=== PATIENT | female | born 1990 | race Caucasian/White ===

== ENCOUNTER 2017-10-13 22:21 | Emergency (ER) | payer OTHER ==
[~2017-10-13] VITALS: Ht 160 cm; Wt 68.0 kg
[2017-10-13 22:34] VITALS: BP 129/90
--- NOTE | 2017-10-13 22:39 | NUR ---
TO LOBBY ,A/W BED, AMB ,STABLE, ERMD NOTED
--- NOTE | 2017-10-14 00:20 | NUR ---
PATIENT AMBULATED TO ER BED 2
--- NOTE | 2017-10-14 00:56 | NUR ---
26Y/F PT. PRESENTS TO ED WITH C/O LOWER ABDOMINAL PAIN X 1 WK. PT. STATES HAVING PERIOD NOW, PAIN RADIATES TO BACK WITH NAUSEA. NO MED HX. AAO X4, AMBULATORY WITH STEADY GAIT. RESPIRATIONS ROOM AIR, EVEN AND UNLABORED. ABDOMEN SOFT, NONTENDER, ACTIVE BS X4. C/O PAIN 9/. VSS, ER MADE AWARE OF PT.STATUS.
[2017-10-14] MEDS ORDERED: DICYCLOMINE 20 MG/2 ML VIAL IM ONE (01:30)
[2017-10-14 01:38] LABS: BASOPHILS # (AUTO) 0.2 K/uL (0.00-0.22); BASOPHILS % (AUTO) 1.9 % (0.0-2.0); EOSINOPHILS # (AUTO) 0.1 K/uL (0-0.4); HEMATOCRIT 35.9 % (36-48); HEMOGLOBIN 11.5 g/dL (12.0-16.0); LYMPHOCYTES % (AUTO) 16.5 % (20.5-51.1); MEAN CORPUSCULAR HEMOGLOBIN 26 pg (27-31); MEAN CORPUSCULAR HGB CONC 32 g/dL (33-37); MEAN CORPUSCULAR VOLUME 80.6 fL (80-94); MONOCYTES # (AUTO) 0.6 K/uL (0.8-1.0); MONOCYTES % (AUTO) 4.7 % (1.7-9.3); NEUTROPHILS % (AUTO) 75.9 % (42.2-75.2); PLATELET COUNT (AUTO) 113 K/uL (140-450); RED BLOOD CELL COUNT(AUTO) 4.45 MIL/uL (4.20-5.40); RED CELL DISTRIBUTION WIDTH 14.6 % (11.6-13.7); WHITE BLOOD COUNT (AUTO) 11.9 K/uL (4.8-10.8)
[2017-10-14 01:51] LABS: ANION GAP 8.4 (8-16); CARBON DIOXIDE 27.1 mmol/L (21-32); CREATININE 0.6 mg/dL (0.6-1.3); POTASSIUM 3.5 mmol/L (3.5-5.1)
[2017-10-14 01:59] LABS: ALBUMIN 3.9 g/dL (3.4-5.0); TOTAL BILIRUBIN 0.7 mg/dL (0.0-1.0)
[2017-10-14 02:44] VITALS: BP 111/68
--- NOTE | 2017-10-14 02:44 | NUR ---
Patient discharged with v/s stable. Written and verbal after care instructions given and explained. Patient alert, oriented and verbalized understanding of instructions. Ambulatory with steady gait. All questions addressed prior to discharge. ID band removed. Patient advised to follow up with PMD. Rx of BENTYL 20 MG given. Patient educated on indication of medication including possible reaction and side effects. Opportunity to ask questions provided and answered.
== END 2017-10-14 02:44 | disposition home or self-care (01) ==
LOC: MED 22:21
DX: R74.0 Nonspecific elevation of levels of transaminase and lactic acid dehydrogenase [LDH] (principal); R10.9 Unspecified abdominal pain; M54.5 Low back pain
CPT/HCPCS: 36415; 80053; 81002; 81025; 85025; 96372; 99284; J0500